=== PATIENT | female | born 1960 | race Caucasian/White ===

== ENCOUNTER 2019-01-07 09:24 | Emergency (ER) | payer BC ==
[~2019-01-07] VITALS: Ht 157.5 cm; Wt 63.0 kg
[2019-01-07 09:29] VITALS: Ht 157.5 cm; Wt 63.0 kg
[2019-01-07 11:08] LABS: CALCIUM 8.7 mg/dL (8.5-10.1); CHLORIDE SERUM 103 mmol/L (98-107); CREATININE SERUM 0.9 mg/dL (0.6-1.0); GFR1 > 60 mL/min; GLUCOSE SERUM 119 mg/dL (74-106); POTASSIUM SERUM 4.1 mmol/L (3.5-5.1); SODIUM SERUM 138 mmol/L (136-145)
[2019-01-07 11:19] LABS: ALBUMIN 3.8 g/dL (3.4-5.0); ALKALINE PHOSPHATASE 69 U/L (46-116); ALT/SGPT 57 U/L (14-59); AST/SGOT 24 U/L (15-37); TOTAL PROTEIN, SERUM 6.7 g/dL (6.4-8.2)
[2019-01-07 11:20] LABS: BASOPHIL % 0.2 % (0-2); PLATELET COUNT 230 x10^3mcL (130-400); RED CELL DISTRIBUTION WIDTH 12.6 % (11.5-14.5)
[2019-01-07 11:23] LABS: T3 TOTAL 1.01 ng/mL
[2019-01-07 11:25] LABS: FREE T4 0.98 ng/dL (0.76-1.46); FREE THYROXINE INDEX 2.6 ug/dL (1.4-4.5); T4(THYROXINE) 6.8 ug/dL (4.7-13.3)
[2019-01-07 11:32] LABS: C REACTIVE PROTEIN < 0.2 mg/dL (<=0.9)
[2019-01-07 11:34] LABS: CK-MB < 0.5 ng/mL (0-3.6); CREATINE KINASE 39 U/L (26-192)
[2019-01-07 11:55] LABS: UA SPECIFIC GRAVITY <=1.005 (1.005-1.035); microscopic required? YES; urine erythrocyte 2+ (NEGATIVE)
[2019-01-07 12:19] LABS: ERYTHROCYTE SED RATE 8 mm/hr (0-30)
[2019-01-07 14:20] VITALS: BP 122/71
[2019-01-08] MEDS ORDERED: PREDNISONE2.5 MG PO (02:24)
[2019-01-08] MEDS ORDERED: KEVZARA200 MG/1.2 SQ (02:25)
== END 2019-01-07 14:20 | disposition home or self-care (01) ==
LOC: EDBD 09:24 → ED 09:24
PROVIDERS: Specialist
DX: N39.0 Urinary tract infection, site not specified (principal); M06.9 Rheumatoid arthritis, unspecified
CPT/HCPCS: 84439; J0696; J1885; J7030; J7060; Q0092

== ENCOUNTER 2019-01-08 00:09 | Inpatient (IN) | payer BC ==
[~2019-01-08] VITALS: Ht 157.5 cm; Wt 65.5 kg
[2019-01-08 00:20] VITALS: Ht 157.5 cm; Wt 65.5 kg
--- NOTE | 2019-01-08 00:28 | NUR ---
PT CAME TO ED CO ABDOMINAL PAIN. PT STS SHE WAS SEEN HERE THIS MORNING FOR UTI. PT STS SHE IS FEELING A SHARP PAIN, IN LOWER RIGHT ABD REGION, RADIATING TO THE LOWER BACK, RATING THE PAIN 10/10. PT STS SHE WAS GIVEN PAIN MEDICAITON, THIS DID NOT RELIEVE THE PAIN. PT STS SHE HAS EXPERIENCE N/V. NO S/S OF DISTRESS. RESP E/U. PAIN UPON PALPATION IN RIGHT LOWER QUADRANT. BOWEL SOUNDS ACTIVE IN ALL FOUR QUADRANTS. AWAITING MSE. WILL CONTINUE TO MONITOR.
[2019-01-08 01:28] LABS: BASOPHIL % 0.1 % (0-2); PLATELET COUNT 196 x10^3mcL (130-400); RED CELL DISTRIBUTION WIDTH 11.9 % (11.5-14.5)
--- NOTE | 2019-01-08 01:31 | NUR ---
PT MEDICATED PER ORDER. PT VERBALIZED UNDERSTANDING OF MEDICAITON TEACHING. SEE EMAR FOR DETAILS.
[2019-01-08 01:41] LABS: CARBON DIOXIDE 27.2 mmol/L (21-32); CHLORIDE SERUM 104 mmol/L (98-107); CREATININE SERUM 0.9 mg/dL (0.6-1.0); GFR1 > 60 mL/min; GLUCOSE SERUM 131 mg/dL (74-106); POTASSIUM SERUM 3.4 mmol/L (3.5-5.1); SODIUM SERUM 138 mmol/L (136-145)
[2019-01-08 01:46] LABS: ALKALINE PHOSPHATASE 56 U/L (46-116); ALT/SGPT 42 U/L (14-59); AST/SGOT 18 U/L (15-37); BILIRUBIN TOTAL 0.72 mg/dL (0.20-1.00); LIPASE 1244 IU/L (73-393)
[2019-01-08 01:47] LABS: ALBUMIN 3.3 g/dL (3.4-5.0)
--- NOTE | 2019-01-08 02:05 | NUR ---
PT MEDICATED PER ORDER. PT VERBALIZED UNDERSTANDING OF MEDICATION TEACHING. SEE EMAR FOR DETAILS.
[2019-01-08] MEDS ORDERED: PREDNISONE2.5 MG PO (02:24)
[2019-01-08] MEDS ORDERED: KEVZARA200 MG/1.2 SQ (02:25)
--- NOTE | 2019-01-08 02:36 | NUR ---
REPORT GIVEN TO ARIEL SOLORZANO TO ASSUME CARE OF PT.
[2019-01-08 02:42] LABS: C REACTIVE PROTEIN < 0.2 mg/dL (<=0.9)
[2019-01-08 02:47] LABS: microscopic required? YES; urine erythrocyte 2+ (NEGATIVE)
[2019-01-08 03:12] LABS: AMPHETAMINE QUAL UR NONE DETECTED (See below)
--- NOTE | 2019-01-08 03:14 | NUR ---
PT MEDICATED PER ORDER. PT VERBALIZED UNDERSTANDING OF MEDICATION TEACHING. SEE EMAR FOR DETAILS.
--- NOTE | 2019-01-08 03:35 | NUR ---
PT TRANSFERRED TO MED SURG FLOOR ACCOMPANIED BY EMT. NO S/S OF DISTRESS. RESP E/U. RN AWARE THAT MED INFUSING ON TRANSFER. IV SITE PATENT, PT DENIES PAIN OR DISCOMFORT.
--- NOTE | 2019-01-08 03:45 | NUR ---
ADMITTED PT FROM ER WITH C/O RLQ PAIN WITH ADMITTING DX ACUTE PANCREATITIS.ID 9/10 TO SHARP PAIN.NO N/V NOTED.PT A/O X4.DENIES HEADACHE OR DIZZINESS.LEVAQUIN IV FROM ER STILL INFUSING.BP 125/73 MMHG,HR 84.NPO AT THIS TIME AND DISCUSSED WITH PT.ADMISSION CARE RENDERED.ORIENTATION TO ROOM AND CALL BUTTON PROVIDED.WILL CONTINUE TO MONITOR.
[2019-01-08 03:52] VITALS: BP 125/73
--- NOTE | 2019-01-08 04:04 | NUR ---
PT MEDICATED PER ORDER. PT VERBALIZED UNDERSTANDING OF MEDICATION TEACHING. SEE EMAR FOR DETAILS.
--- NOTE | 2019-01-08 04:15 | NUR ---
PT VOMITED X1 TO FOOD CONTENT VOMITUS AFTER MORPHIEN AND TORADOL ADMINISTRATION.HOB ELEVATED .NO ASPIRATION NOTED.GOOD ORAL CARE PROVIDED.ALL NEEDS MET.WILL CONTINUE TO MONITOR.
--- NOTE | 2019-01-08 04:49 | NUR ---
VERBALIZED RELIEF FROM MORPHINE AND TORADOL GIVEN BY ER NURSE.NO ASE NOTED FROM LEVAQUIN AND FLAYL IV ATB.HOB KEPT ELEVATED.WILL CONTINUE TO MONITOR.
[2019-01-08 08:10] LABS: BASOPHIL % 0.1 % (0-2); PLATELET COUNT 181 x10^3mcL (130-400); RED CELL DISTRIBUTION WIDTH 13.1 % (11.5-14.5)
[2019-01-08 08:27] LABS: CALCIUM 7.8 mg/dL (8.5-10.1); CARBON DIOXIDE 24.3 mmol/L (21-32); CHLORIDE SERUM 106 mmol/L (98-107); CREATININE SERUM 0.7 mg/dL (0.6-1.0); GFR1 > 60 mL/min; GLUCOSE SERUM 120 mg/dL (74-106); MAGNESIUM 1.8 mg/dL (1.8-2.4); PHOSPHOROUS 3.6 mg/dL (2.5-4.9); POTASSIUM SERUM 4.4 mmol/L (3.5-5.1); SODIUM SERUM 136 mmol/L (136-145)
[2019-01-08 08:54] LABS: CHOLESTEROL/HDL RATIO 4.5
[2019-01-08 09:30] VITALS: BP 125/67
--- NOTE | 2019-01-08 11:26 | NUR ---
RECEIVED PATIENT ALERT AND ORIENTED TIMES FOUR. PATIENT HAS BEEN ON IV FLUIDS AND PATIETN FARHAN BEREN NPO ORDERED. THE LIPASE WAS ELEVATED AND THE PANCREATIS SHOWS IMFLAMMATION. PATIENT HAS HISTORY OF RHEUMATOID ARTHITIS AND HAS BORDERLINE DIABTES. SHE HAS HAD RFREQUENT URINARY TRACT INFECTIONS AND TAKES STEROIDS AT HOME FOR HER RA. SHE RECEIVED LEVAQUIN IN THE ER AND FLAGYL WELL. AT THIS TIME SHE HAS POTASSIUM OF 3.4, LIPASE AT 1244, AND THE CA AT 8.0 AND GLUCOSE AT 131. DENIES HISTORY OF DIABETES AND NO KNOWN ALLERGIES NOTED. VITALS AT THIS TIME AT 97.8, 84, 16, 125/73, 94% ON ROOM AIR.
--- NOTE | 2019-01-08 13:42 | NUR ---
SEVERAL ATTEMPTS MADE AND ALL WITH BLOOD RETURN, BUT QUICKLY THE SITE STARTED TO SWELL. STARTED A 24 IN THE HAND AT THAT POINT AND RUNNING AT 20 AND WILL TITRATE UP TO GET TO THE DESIRED RATE AGAIN. PATIENT TOLERATED WELL. PATIENT HAS BEEN VOMITING AND HAS BEEN NPO INDICATED.
--- NOTE | 2019-01-08 15:29 | NUR ---
INCREASED THE IV TO 65 AND WILL CONTINUE TO MONITOR. PATIENT HAS NOT HAVE ANY FURTHER NAUSEA AT [facility]. WILL CONTINUE TO MONITOR.
--- NOTE | 2019-01-08 16:40 | NUR ---
PATIENT'S IV FLUIDS NOW AT 85 AND WILL MONITOR SITE FOR TOLERANCE. SO FAR NO SIGNS OF INFILTRATE NOTED. WILL CONTINUE TO MONITOR.
[2019-01-08 17:16] VITALS: BP 117/66
--- NOTE | 2019-01-08 19:20 | NUR ---
REPORT RECEIVED FROM DAY SHIFT RN. PATIENT WAS SEEN RESTING COMFORTABLY IN BED. NO DISTRESS NOTED. BREATHING EVEN AND UNLABORED ON ROOM AIR. NO SOB OR RESP DISTRESS NOTED. IV TO THE LH, 24G, PATENT AND INTACT. NO REDNESS OR SWELLING NOTED. INFUSING WELL. DENIES N/V. DENIES CHEST PAIN/PRESSURE. NO C/O PAIN. COMFORT AND SAFETY MEASURES IN PLACE. CALL LIGHT IS WITHIN REACH. BED IS LOCKED AND IN THE LOWEST POSITION. SIDE RAILS UP X2. WILL CONTINUE TO MONITOR.
[2019-01-08 21:46] VITALS: BP 118/74
--- NOTE | 2019-01-09 01:17 | NUR ---
RESTING IN BED COMFORTABLY. NO DISTRESS NOTED. DENIES PAIN AND N/V. IVF INFUSING WELL. BREATHING EVEN AND UNLABORED ON ROOM AIR. SAFETY MEASURES IN PLACE. CALL LIGHT IS WITHIN REACH. WILL CONTINUE TO MONITOR.
--- NOTE | 2019-01-09 02:35 | NUR ---
C/O MILD INDISGETION/ ACID REFLUX. PAGE GATED DR FERNANDES.
--- NOTE | 2019-01-09 03:04 | NUR ---
C/O 6/10 RLQ PAIN AND INDIGESTION/ACID REFLUX. PRN NORCO AND TUMS ADMINISTERED PRESCRIBED. MED EDUCATION GIVEN. NO DISTRESS NOTED. BREATHING EVEN AND UNLABORED ON ROOM AIR. SAFETY MEASURES IN PLACE. CALL LIGHT IS WITHIN REACH. WILL CONTINUE TO MONITOR
[2019-01-09 05:36] VITALS: BP 105/59
--- NOTE | 2019-01-09 06:00 | NUR ---
BLADDER SCAN DONE AND IT SHOWS AROUND 600ML OF URINE IN BLADDER. PATIENT STATES SHE DOES NOT HAVE TO VOID AT THIS TIME. WILL CALL DR ATWOOD AND NOTIFY HIM.
--- NOTE | 2019-01-09 06:28 | NUR ---
RESTED IN INTERVALS THROUGHTOUT THE NIGHT. NO ACUTE CHANGES NOTED. NO DISTRESS NOTED. BREATHING EVEN AND UNLABORED ON ROOM AIR. NO SOB NOTED. DENIES CHEST PAIN/ PRESSURE. NO C/O PAIN AT THIS TIME. IVF INFUSING WELL. PATENT AND INTACT. SAFETY MEASURES IN PLACE. CALL LIGHT IS WITHIN REACH. WILL ENDORSE CARE TO DAY SHIFT RN.
[2019-01-09 06:39] LABS: BASOPHIL % 0.2 % (0-2); PLATELET COUNT 182 x10^3mcL (130-400); RED CELL DISTRIBUTION WIDTH 12.8 % (11.5-14.5)
[2019-01-09 06:40] LABS: CALCIUM 7.7 mg/dL (8.5-10.1); CHLORIDE SERUM 111 mmol/L (98-107); CREATININE SERUM 0.9 mg/dL (0.6-1.0); GFR1 > 60 mL/min; GLUCOSE SERUM 91 mg/dL (74-106); MAGNESIUM 1.7 mg/dL (1.8-2.4); PHOSPHOROUS 3.2 mg/dL (2.5-4.9); POTASSIUM SERUM 3.8 mmol/L (3.5-5.1); SODIUM SERUM 143 mmol/L (136-145)
--- NOTE | 2019-01-09 07:39 | NUR ---
RECEIVED PATIENT RESTING IN BED, NO ACUTE DISTRESS NOTED. PATIENT STATES SHE HAS BACK DISCOMFORT TO 05, PATIENT STATES DISCOMFORT IS TOLERABLE. PATIENT DENIES NAUSEA & VOMITTING, ON CLEAR LIQUID DIET. PATIENT IS AMBULATORY, NO WEAKNESS NOTED. NS IV INFUSING TO LEFT HAND AT 150ML/HR, IV SITE CDI & PATENT, NO S/S OF INFILTRATION. CALL LIGHT WITHIN REACH, BED IN LOW POSITION WILL CONTINUE TO MONITOR FOR CHANGES.
[2019-01-09 09:21] VITALS: BP 115/64
--- NOTE | 2019-01-09 15:31 | NUR ---
[employer] MANAGER AMOS AT BEDSIDE, SPOKE WITH PATIENT REGARDING PLAN OF CARE. PATIENT AWARE DIET WILL BE ADVANCED TOLERATED AND LABS WILL BE MONITORED. PATIENT VERBALIZED UNDERSTAND. ALL NEEDS MET AT THIS TIME. WILL CONTINUE TO MONITORED.
[2019-01-09 16:52] VITALS: BP 125/72
--- NOTE | 2019-01-09 18:00 | NUR ---
PATIENT RESTING IN BED, WATCHING TV. NO ACUTE DISTRESS NOTED. PATIENT DENIES PAIN. ALL QUESTIONS AND CONCERNS ADDRESSED. NS IV INFUSING TO LH AT 150ML/HR, IV SITE CDI & PATENT. CALL LIGHT WITHIN REACH, WILL ENDORSE REPORT.
--- NOTE | 2019-01-09 19:40 | NUR ---
RECEIVED REPORT FROM DAY SHIFT RN. PT SITTING UP IN BED. AA&O X4. NO SOB NOTED ON ROOM AIR. NO C/O N/V/ABD PAIN AT THIS TIME. IV TO LEFT HAND, INTACT. SAFETY MEASURES IN PLACE. BED IN LOWEST POSITION. SIDE RAILS UP X2. INSTRUCTED PT TO USE THE CALL LIGHT FOR ASSISTANCE. CALL LIGHT WITHIN REACH.
--- NOTE | 2019-01-09 22:08 | NUR ---
TYLENOL GIVEN FOR HEADACHE 11/11 AND TUMS FOR GERD.
[2019-01-09 22:27] VITALS: BP 108/69
--- NOTE | 2019-01-10 05:52 | NUR ---
PT RESTED IN LONG INTERVALS DURING SHIFT. BREATHING EVEN AND UNLABORED ON ROOM AIR. TUMS GIVEN FOR GERD. NO C/O N/V/ABD PAIN. IV TO RFA, PATENT AND INTACT. SAFETY MEASURES MAINTAINED. ALL NEEDS ATTENDED TO. CALL LIGHT WITHIN REACH. WILL CONTINUE TO MONITOR AND ENDORSE CONTINUITY OF CARE TO ONCOMING RN.
[2019-01-10 06:14] VITALS: BP 127/63
[2019-01-10 06:24] LABS: BASOPHIL % 0.4 % (0-2); PLATELET COUNT 176 x10^3mcL (130-400); RED CELL DISTRIBUTION WIDTH 15.6 % (11.5-14.5)
[2019-01-10 06:32] LABS: CALCIUM 8.1 mg/dL (8.5-10.1); CARBON DIOXIDE 26.1 mmol/L (21-32); CHLORIDE SERUM 109 mmol/L (98-107); CREATININE SERUM 0.7 mg/dL (0.6-1.0); GFR1 > 60 mL/min; GLUCOSE SERUM 93 mg/dL (74-106); MAGNESIUM 1.8 mg/dL (1.8-2.4); POTASSIUM SERUM 3.5 mmol/L (3.5-5.1); SODIUM SERUM 144 mmol/L (136-145)
--- NOTE | 2019-01-10 07:48 | NUR ---
REPORT RECEIVED FROM SPRING FORMER RNZAYDA. PATIENT FOUND IN BED WATCHING TV. ALERT AND ORIENTED X 4. NO SIGNS OF DISTRESS NOTED. WILL CONTINUE TO MONITOR. CALL LIGHT WITHIN REACH.
--- NOTE | 2019-01-10 08:19 | NUR ---
[employer]OM[employer]BILE DAMAGE FIELD APPRAISER AMOS NOTIFIED OF ABNORMAL LAB VALUES HGB: 8.8, HCT 27, BUN: 60.0 AND CREATININE: 5.9. PATIENT MADE AWARE. NO NEW ORDERS AT THIS TIME. WILL CONTINUE TO MONITOR. CALL LIGHT WITHIN REACH.
[2019-01-10 09:58] VITALS: BP 117/70
[2019-01-10] MEDS ORDERED: LEVOFLOXACIN500 M1 PO (11:46)
[2019-01-10] MEDS ORDERED: TOR10 PO (11:46)
[2019-01-10 12:41] VITALS: BP 117/70
--- NOTE | 2019-01-10 14:01 | NUR ---
PATIENT IN BED AND FINISHED LUNCH. NO SIGNS OF DISTRESS. EDUCATED PATIENT ON DISCHARGE INSTRUCTIONS. PATIENT AWARE THAT SHE IS DISCHARGED AND CURRENTLY WAITING FOR HER RIDE. IV DISCONTINUED ON RIGHT FOREARM. NO S/S OF INFILTRATION NOTED. WILL CONTINUE TO MONITOR. CALL LIGHT WITHIN REACH.
== END 2019-01-10 15:13 | disposition home or self-care (01) | DRG 391 ==
LOC: ED 00:09 → MU 02:15 → EDBD 02:15 → MU 03:35
PROVIDERS: Emergency Medicine; Family Medicine; ADMIT Internal Medicine
DX: K29.80 Duodenitis without bleeding (principal); K85.90 Acute pancreatitis without necrosis or infection, unspecified; N39.0 Urinary tract infection, site not specified; E44.1 Mild protein-calorie malnutrition; D63.8 Anemia in other chronic diseases classified elsewhere; E87.6 Hypokalemia; K21.9 Gastro-esophageal reflux disease without esophagitis; M06.9 Rheumatoid arthritis, unspecified; E83.51 Hypocalcemia; Z68.25 Body mass index [BMI] 25.0-25.9, adult
CPT/HCPCS: G0378; J1885; J1956; J2270; J2405; J3490; J7030; J7512; Q0092

== ENCOUNTER 2019-06-22 18:43 | Emergency (ER) | payer BC ==
[~2019-06-22] VITALS: Ht 157.5 cm; Wt 61.2 kg
[~2019-06-22 18:43] MED LIST: KEVZARA200 MG/1.2 SQ; LEVOFLOXACIN500 M1 PO; PREDNISONE2.5 MG PO; TOR10 PO
[2019-06-22 18:50] VITALS: Ht 157.5 cm; Wt 61.2 kg
[2019-06-22 20:53] VITALS: BP 136/62
== END 2019-06-22 20:53 | disposition home or self-care (01) ==
LOC: ED 18:43
DX: S42.91XA Fracture of right shoulder girdle, part unspecified, initial encounter for closed fracture (principal); S93.402A Sprain of unspecified ligament of left ankle, initial encounter; W01.0XXA Fall on same level from slipping, tripping and stumbling without subsequent striking against object, initial encounter; Y93.89 Activity, other specified; Y92.89 Other specified places as the place of occurrence of the external cause; Y99.8 Other external cause status
CPT/HCPCS: J1885; Q0092